=== PATIENT | male | born 1995 | race Caucasian/White ===

== ENCOUNTER 2017-10-30 07:54 | Emergency (ER) | payer OTHER, SELFPAY ==
[2017-10-30 08:00] VITALS: BP 138/86; PULSE 62; RESP 18; TEMP 36.4; O2SAT 100; BMI 30.3
--- NOTE | 2017-10-30 08:21 | ED.LOWEXIN ---
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 Denies trauma, fevers, chills, malaise. ROS with no recent constitutional symptoms. Exam Gen: Pleasant, nontoxic-appearing, resting comfortably. HEENT: NC, AT, PEERL, EOMI. Resp: Unlabored respirations with a normal work of breathing. Card: Extremities warm and well perfused. GI: Non-distended. : Deferred MSK: left knee with full functional range of motion, NON-TENSE, PREPATELLAR SWELLING WITH MINIMAL WARMTH, NO ERYTHEMA, NO OR CREPITUS, no tenderness to palpation over the patella, fibular head, or joint line. No MCL or LCL tenderness to palpation, negative Esndy and posterior drawer test. No tenderness to palpation on the quadriceps or patellar tendon, both tendons intact on knee extension. No swelling, ecchymosis or effusion. Calf without visible or palpable trauma, muscle compartments soft and non-tender to palpation. Foot warm and well perfused, sensation grossly intact to touch, 2+ DP and PT pulses. Neuro: AO x 3, no facial asymmetry, vision and hearing WNL. Heme/Lymph: Deferred Skin: Normal color with no visible lesions (other than noted above). Psych: Mood and affect appropriate. MDM Previous chart, nursing note, and vitals reviewed. 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 DDx & Evaluation: patient with left knee prepatellar bursitis, exam and history without evidence of septic bursitis, suspect inflammatory secondary to repetitive occupational trauma. No evidence of septic arthritis, CMS intact, no evidence of ligamentous, tendinous, or meniscal injury. History without indication for imaging. Patient instructed to use NSAIDs, reduce repetitive trauma, return to care precautions provided. Impression: left knee prepatellar bursitis. (please reference below for remainder of encounter information) Related Data Allergies Allergy/AdvReac Type Severity Reaction Status Date / Time No Known Allergies Allergy Uncoded 07/06/17 12:50 [facility] Social History Smoking Status: Never smoker Exam Initial Vital Signs Initial Vital Signs: Vital Signs Temperature 97.5 F L 10/30/17 08:00 Pulse Rate 62 10/30/17 08:00 Respiratory Rate 18 10/30/17 08:00 Blood Pressure 138/86 H 10/30/17 08:00 Pulse Oximetry 100 10/30/17 08:00 Course Vital Signs - 8 hr 10/30/17 08:00 Temperature 97.5 F L Pulse Rate 62 Respiratory Rate 18 Blood Pressure 138/86 H Pulse Oximetry 100
== END 2017-10-30 08:33 | disposition home or self-care (01) ==
PROVIDERS: Emergency Provider Emergency Medicine
DX: M70.42 Prepatellar bursitis, left knee (principal)
CPT/HCPCS: 99282

== ENCOUNTER 2019-05-31 08:58 | Emergency (ER) | payer OTHER, SELFPAY ==
--- NOTE | 2019-05-31 09:10 | ED_ITS ---
HPI - General Adult General Chief complaint: Extremity Problem,Nontraumatic Stated complaint: bad infection in right knee Time Seen by Provider: 05/31/19 09:00 Source: patient Mode of arrival: Ambulatory Limitations: no limitations History of Present Illness HPI narrative: 23-year-old male here for evaluation what he thinks is an infection of his right knee. He states that a couple days ago he started to get pain in the front of his right knee. Did form a ?paul ?he popped it last evening. States the swelling started this morning. Has pain with walking. Pain with bending his knee. No fevers. States he has had bursitis in the past. States that he is prone to ?staph infections ?not currently on antibiotics but has been on antibiotics in the past but not now. Related Data Previous Rx's Medication Instructions Recorded sulfamethoxazole-trimethoprim 1 tab PO BID 7 Days #14 tab 05/31/19 [Bactrim DS] Allergies Allergy/AdvReac Type Severity Reaction Status Date / Time No Known Allergies Allergy Uncoded 07/06/17 12:50 Review of Systems Constitutional Constitutional: Denies fever(s) ENT Ears, Nose, Mouth, and Throat: Denies disequilibrium Musculoskeletal Musculoskeletal: Denies numbness and Denies tingling Comments: Pain in the right knee Integumentary/Breasts Comments: Has a small paul on the front of his right knee. Swelling the right knee. No redness. Neurologic Neurologic: Denies numbness, Denies tingling and Denies disequilibrium Hematologic/Lymphatic Hematologic/Lymphatic: Denies easy bleeding and Denies easy bruising Patient History Medical History (Updated 05/31/19 @ 09:17 by Leonela Rg RN) Anxiety (Acute) MRSA (methicillin resistant Staphylococcus aureus) (Acute) Social History Smoking Status: Never smoker Smoking Status: Never smoker alcohol intake frequency: holidays/special occasions only Substance Use Type: does not use Exam Initial Vital Signs Initial Vital Signs: Vital Signs Temperature 98.1 F 05/31/19 09:13 Pulse Rate 75 05/31/19 09:13 Respiratory Rate 20 05/31/19 09:13 Blood Pressure 143/102 H 05/31/19 09:13 Pulse Oximetry 99 05/31/19 09:13 Const General: cooperative and comfortable Resp Effort & Inspection: normal respiratory effort Skin Other: No redness to the right knee however does have a 2 mm pustule the anterior aspect. No surrounding erythema. Does have swelling to the right knee. Extrem Other: Swelling to the right knee anterior. Stiffness with bending the knee secondary to the swelling Course Vital Signs Vital signs: Vital Signs - 8 hr 05/30/ 09:13 Temperature 98.1 F Pulse Rate 75 Respiratory Rate 20 Blood Pressure 143/102 H Pulse Oximetry 99 Medical Decision Making MDM Narrative Medical decision making narrative: Bedside ultrasound shows no organized fluid collection under the area. Does have swelling around the knee but appears to be in the prepatellar area. I do not feel that his issue today is a septic joint. There is no surrounding erythema. Will place the patient on antibiotics. He was given return precautions and follow-up instructions. He expressed understanding and agreement. Discharge Plan Departure Patient Disposition: Home Clinical Impression: Bursitis Qualifiers: Bursitis location: knee Knee bursitis location: prepatellar bursitis Laterality: right Qualified Code(s): M70.41 - Prepatellar bursitis, right knee Acute knee pain Qualifiers: Laterality: right Qualified Code(s): M25.561 - Pain in right knee Instructions: Bursitis Activity Restrictions/Additional Instructions: Take the antibiotics as directed. Contact your primary provider for a follow- up. Return to the emergency department for any new or worsening symptoms. You can take Tylenol and/or ibuprofen for any discomfort. Keep your knee elevated. You have no restrictions on your activities. Prescriptions: New sulfamethoxazole-trimethoprim [Bactrim DS] 800-160 mg tablet 1 tab PO BID 7 Days Qty: 14 RF: 0
[2019-05-31 09:13] VITALS: BP 143/102; PULSE 75; RESP 20; TEMP 36.7; O2SAT 99; BMI 27.9
== END 2019-05-31 09:35 | disposition home or self-care (01) ==
LOC: ED 09:31
PROVIDERS: Emergency Provider Emergency Medicine
DX: M70.41 Prepatellar bursitis, right knee (principal); M25.561 Pain in right knee
CPT/HCPCS: 99281

== ENCOUNTER 2019-06-08 13:54 | Emergency (ER) | payer OTHER, SELFPAY ==
[2019-06-08 14:02] VITALS: BP 114/77; PULSE 71; RESP 20; TEMP 36.4; O2SAT 99
--- NOTE | 2019-06-08 14:11 | DI.RAD.S_ITS ---
PROCEDURE: XR KNEE RT 3V INDICATIONS: prolonged cellulitis right knee, failed outpatient treatment TECHNIQUE: 3 views of the knee were acquired. COMPARISON: None. FINDINGS: Bones: No fractures or dislocations. No suspicious bony lesions. Anterior soft tissue swelling in the superficial infrapatellar region. Soft tissues: No joint effusion. No suspicious soft tissue calcifications. IMPRESSION: Anterior superficial soft tissue swelling, possibly related to bursitis. If the patient's pain or other symptoms persist, consider further evaluation with MRI Dictated by: Dimitry Mosher M.D. on 06/08/2019 at 15:20 Approved by: Dimitry Mosher M.D. on 06/08/2019 at 15:21
[2019-06-08] MEDS: SODIUM CHLORIDE 0.9% 1,000 ML 1000 ML IV (14:47)
[2019-06-08 15:09] LABS: Add Manual Diff / Slide Review NO; Basophils Absolute Auto 100 /uL (0-100); Basophils Percent Auto 0.7 % (0-2); Eosinophils Absolute Auto 100 /uL (0-450); Eosinophils Percent Auto 1.4 % (2-4); Hematocrit 44.6 % (41-53); Hemoglobin 15.4 g/dL (13.5-17.5); Lymphocytes Absolute Auto 2100 /uL (1100-4500); Lymphocytes Percent Auto 20.4 % (25-40); Mean Corpuscular HGB Conc 34.5 % (30-36); Mean Corpuscular Hemoglobin 28.5 PG (26-34); Mean Corpuscular Volume 82.6 fL (80-100); Monocytes Absolute Auto 800 /uL (0-900); Monocytes Percent Auto 7.4 % (3-14); Neutrophils Absolute Auto 7200 /uL (1500-7000); Neutrophils Percent Auto 70.1 % (50-75); Platelet Count 451 X10^3/uL (150-400); White Blood Cell Count 10.2 X10^3/uL (4.5-11.0)
[2019-06-08 15:17] LABS: INR 1.1 (0.9-1.3); Prothrombin Time 12.9 SECONDS (10.1-12.7)
[2019-06-08 15:19] LABS: PTT Partial Thromboplastin Tim 35 SECONDS (26.4-36.2)
[2019-06-08 15:22] LABS: Lactate (Lactic Acid) 1.7 mmol/L (0.7-2.1)
[2019-06-08 15:23] LABS: Alanine Aminotransferase 18 IU/L (<50); Albumin 4.6 g/dL (3.5-5.0); Albumin Globulin Ratio 1.4 (1.0-2.8); Alkaline Phosphatase 80 U/L (38-126); Aspartate Aminotransferase 19 IU/L (17-59); BUN Creatinine Ratio 14.7 (6-22); Bilirubin Total 0.4 mg/dL (0.2-1.3); Blood Urea Nitrogen 14 mg/dL (9-20); C-Reactive Protein Quant 4.1 mg/dL (<1.0); Calcium 9.8 mg/dL (8.4-10.2); Carbon Dioxide 27 mmol/L (22-32); Chloride 101 mmol/L (98-107); Estimated Glomerular Filt Rate > 60.0 mL/min (>60); Globulin 3.4 g/dL (1.7-4.1); Glucose 91 mg/dL (70-100); HEMOLYSIS < 15 (0-50); Lipase 52 U/L (23-300); Potassium 4.1 mmol/L (3.4-5.1); Sodium 139 mmol/L (137-145)
[2019-06-08 15:28] LABS: Erythrocyte Sedimentation Rate 21 MM/HR (0-15)
[2019-06-08 15:36] LABS: Procalcitonin < 0.05 ng/mL (<0.5)
--- NOTE | 2019-06-08 15:39 | ED.SKABFB ---
HPI - Skin/Abscess/Foreign Bdy <GLYNN Le - Last Filed: 06/08/19 23:20> General Chief complaint: Skin/Abscess/Foreign Body Stated complaint: states staph infection of right knee Time Seen by Provider: 06/08/19 14:43 Source: patient and family Mode of arrival: Ambulatory Limitations: no limitations History of Present Illness HPI narrative: This is a 23-year-old male, nonsmoker, who presents to ED with significant other with chief complain of right knee pain, warmth, redness. Patient was diagnosed with bursitis in right knee on 05/31/[address] [facility] Emergency room and discharged to home with Bactrim for b.i.d. 7 day course. Of MRSA infection on chin and knee from a spider bite in the past. Patient followed up at walk-in clinic on the 06/05/19 since the redness, swelling, tenderness on right knee becoming worse but with improved bursitis and size of his right knee. He was discharged to home with additional 7 day course of Bactrim, Keflex 500 mg q.i.d. dose for 7 days and mupirocin ointment since he started noticing drainage from infrapatella. Walk-in clinic today again with not improving staph infection of the right knee. Patient has been using warm packs on affected site. Increasing discomfort with weight-bearing and ambulation. Patient reported right knee continue to have swelling and redness with increasing discomfort and changing discoloration of light yellow above ankle. Patient denies fever, chills, nausea, vomiting, diarrhea, breathing difficulty, chest pain but continued to have difficulty bending the affected knee. Patient reports intact sensation distally. Patient was referred to emergency room with concerns for joint infection or infected bursitis. Related Data Home Medications Medication Instructions Recorded Confirmed Thc Oil 1 inh INHALATION PRN PRN 05/31/19 06/08/19 Previous Rx's Medication Instructions Recorded mupirocin 2 % topical ointment 1 applic TOP TID #30 gram 06/05/19 clindamycin HCl 150 mg PO TID 10 Days #30 cap 06/08/19 clindamycin HCl 300 mg PO TID #30 cap 06/08/19 Allergies Allergy/AdvReac Type Severity Reaction Status Date / Time No Known Drug Allergies Allergy Verified 06/08/19 14:07 Review of Systems <GLYNN Le - Last Filed: 06/08/19 23:20> Review of Systems Narrative: General: Denies fever, chills, fatigue, malaise, sweats. HEENT: Denies sinus pain, ear pain, sore throat, difficulty swallowing, dizziness. Respiratory: Denies dyspnea, cough, wheezing, hemoptysis, sputum. Cardiovascular: Denies chest pain, palpitations, orthopnea, edema. Gastrointestinal: Denies nausea, vomiting, abdominal pain, diarrhea, constipation, melena. : Denies dysuria, frequency, incontinence, hematuria, urinary retention. Musculoskeletal: See HPI Skin: See HPI Neurologic: Denies weakness, headache, numbness, change in speech, confusion, seizures, incoordination. Psychiatric: No concerning psychosocial issues. 12-point review of systems is negative except for those stated above. Patient History <GLYNN Le - Last Filed: 06/08/19 23:20> Medical History Anxiety (Acute) Cellulitis of right lower extremity (Acute) MRSA (methicillin resistant Staphylococcus aureus) (Acute) Social History Smoking Status: Never smoker Smoking Status: Never smoker alcohol intake frequency: holidays/special occasions only Substance Use Type: marijuana Exam <GLYNN Le - Last Filed: 06/08/19 23:20> Narrative Exam Narrative: General appearance: well developed, well nourished, in no acute distress. Head: normocephalic, atraumatic, no scalp lesions, non-tender. Neck/Thyroid: neck supple, full range of motion, no visible masses or meningeal signs. No JVD, non-tender without lymphadenopathy. Skin: no suspicious rashes, lesions over visible areas. Warm and dry and appropriate color for ethnicity. Heart: no clubbing, no cyanosis, no edema. S1 and S2 normal. RRR w/o murmurs, clicks, or bruits. Lungs: Breathing even and unlabored. No stridor. No accessory muscles used. Able to speak in full sentences. Chest: normal shape and expansion. Abdomen: non-obese, non-distended. Neurologic: alert and oriented. Cognitive exam, POLE SETTER and PNS grossly intact on informal exam. Psych: good eye contact, normal affect. Initial Vital Signs Initial Vital Signs: Vital Signs Temperature 97.6 F 06/08/19 14:02 Pulse Rate 71 06/08/19 14:02 Respiratory Rate 20 06/08/19 14:02 Blood Pressure 114/77 06/08/19 14:02 Pulse Oximetry 99 06/08/19 14:02 Extrem Right lower extremity: knee Details: abnormal to inspection, tenderness, swelling Location: of the proximal fibula, of the pre-patellar area, of the infrapatellar area and of the proximal tibia, abnormal ROM (Was able to flex right next slowly up to 90 degree.) Details: pain with active ROM during and pain with passive ROM during, knee ligament exam normal, ecchymosis (diffused Light yellow discoloration above right ankle), warmth (Supra and infra patella) and other (small dried scab in infra patella with small amount of fluctuation and tender to palpate), lower leg, ankle Details: normal to inspection; no tenderness and no swelling and foot Details: normal to inspection, toes with normal ROM, no edema, vascular exam Details: dorsalis pedis pulse present and motor-sensory exam Details: light-touch normal; no tenderness <Mikel Ferrell MD - Last Filed: 06/15/19 17:58> Initial Vital Signs Initial Vital Signs: Vital Signs Temperature 97.6 F 06/08/19 14:02 Pulse Rate 71 06/08/19 14:02 Respiratory Rate 20 06/08/19 14:02 Blood Pressure 114/77 06/08/19 14:02 Pulse Oximetry 99 06/08/19 14:02 Scores <GLYNN Le - Last Filed: 06/08/19 23:20> GCS [place] coma scale eye opening: Spontaneous [place] coma scale verbal response: Orientated [place] coma scale motor response: Obey commands [place] coma scale total score: 15 Course <GLYNN Le - Last Filed: 06/08/19 23:20> Orders Ordered: Discontinued Medications Sodium Chloride (Normal Saline 0.9%) 1,000 mls @ 1,000 mls/hr IV BOLUS ONE Stop: 06/08/19 15:10 Last Infusion: 06/08/19 16:14 Dose: 0 mls/hr Documented by: Admin: 06/08/19 14:47 Dose: 1,000 mls/hr Documented by: ARTHUR Clindamycin Phosphate (Cleocin) 600 mg in 50 mls @ 50 mls/hr IV NOW ONE Stop: 06/08/19 16:43 Last Infusion: 06/08/19 17:31 Dose: 0 mls/hr Documented by: Admin: 06/08/19 16:23 Dose: 50 mls/hr Documented by: ARTHUR Vital Signs Vital signs: Vital Signs - 8 hr 06/08/19 16:48 06/08/19 17:47 Temperature 98.5 F 98 F Pulse Rate 65 65 Respiratory Rate 14 14 Blood Pressure [Left Arm] 134/83 132/88 Pulse Oximetry 98 99 <Mikel Ferrell MD - Last Filed: 06/15/19 17:58> Orders Ordered: Discontinued Medications Sodium Chloride (Normal Saline 0.9%) 1,000 mls @ 1,000 mls/hr IV BOLUS ONE Stop: 06/08/19 15:10 Last Infusion: 06/08/19 16:14 Dose: 0 mls/hr Documented by: Admin: 06/08/19 14:47 Dose: 1,000 mls/hr Documented by: ARTHUR Clindamycin Phosphate (Cleocin) 600 mg in 50 mls @ 50 mls/hr IV NOW ONE Stop: 06/08/19 16:43 Last Infusion: 06/08/19 17:31 Dose: 0 mls/hr Documented by: Admin: 06/08/19 16:23 Dose: 50 mls/hr Documented by: ARTHUR Vital Signs Vital signs: Vital Signs - 8 hr 06/08/19 16:48 06/08/19 17:47 Temperature 98.5 F 98 F Pulse Rate 65 65 Respiratory Rate 14 14 Blood Pressure [Left Arm] 134/83 132/88 Pulse Oximetry 98 99 MDM - Skin/Abscess/Foreign Bdy <GLYNN Le - Last Filed: 06/08/19 23:20> Differential Diagnosis Differential diagnosis: Likely abscess of skin or subcutaneous tissue, cellulitis and other (Joint infection/infected bursa) Medical Records Attestation: I reviewed the patient's medical records. Lab Data Attestation: I reviewed the patient's lab results. Result diagrams: 06/08/19 14:57 06/08/19 14:57 Labs: Lab Results 06/08/19 06/08/19 06/08/19 Range/Units 14:57 14:57 14:57 WBC 10.2 (4.5-11.0) X10^3/uL RBC 5.40 (4.5-5.9) X10^6/uL Hgb 15.4 (13.5-17.5) g/dL Hct 44.6 (41-53) % MCV 82.6 (80-100) fL MCH 28.5 (26-34) PG MCHC 34.5 (30-36) % RDW 13.0 (11.6-14.8) % Plt Count 451 H (150-400) X10^3/uL Neut % (Auto) 70.1 (50-75) % Lymph % (Auto) 20.4 L (25-40) % [place] % (Auto) 7.4 (3-14) % Eos % (Auto) 1.4 L (2-4) % Baso % (Auto) 0.7 (0-2) % Neut # (Auto) 7200 H (4399-9653) /uL Lymph # (Auto) 2100 (9003-3707) /uL [place] # (Auto) 800 (0-900) /uL Eos # (Auto) 100 (0-450) /uL Baso # (Auto) 100 (0-100) /uL ESR 21 H (0-15) MM/HR PT 12.9 H (10.1-12.7) SECONDS INR 1.1 (0.9-1.3) APTT 35 (26.4-36.2) SECONDS Sodium (137-145) mmol/L Potassium (3.4-5.1) mmol/L Chloride (98-107) mmol/L Carbon Dioxide (22-32) mmol/L BUN (9-20) mg/dL Creatinine (0.66-1.25) mg/dL Estimated GFR (>60) mL/min BUN/Creatinine Ratio (6-22) Glucose (70-100) mg/dL Lactate (0.7-2.1) mmol/L Calcium (8.4-10.2) mg/dL Total Bilirubin (0.2-1.3) mg/dL AST (17-59) IU/L ALT (<50) IU/L Alkaline Phosphatase (38-126) U/L C-Reactive Protein (<1.0) mg/dL Total Protein (6.3-8.2) g/dL Albumin (3.5-5.0) g/dL Globulin (1.7-4.1) g/dL Albumin/Globulin Ratio (1.0-2.8) Lipase (23-300) U/L Procalcitonin < 0.05 (<0.5) ng/mL 06/08/19 06/08/19 Range/Units 14:57 14:57 WBC (4.5-11.0) X10^3/uL RBC (4.5-5.9) X10^6/uL Hgb (13.5-17.5) g/dL Hct (41-53) % MCV (80-100) fL MCH (26-34) PG MCHC (30-36) % RDW (11.6-14.8) % Plt Count (150-400) X10^3/uL Neut % (Auto) (50-75) % Lymph % (Auto) (25-40) % [place] % (Auto) (3-14) % Eos % (Auto) (2-4) % Baso % (Auto) (0-2) % Neut # (Auto) (5360-6901) /uL Lymph # (Auto) (4533-3851) /uL [place] # (Auto) (0-900) /uL Eos # (Auto) (0-450) /uL Baso # (Auto) (0-100) /uL ESR (0-15) MM/HR PT (10.1-12.7) SECONDS INR (0.9-1.3) APTT (26.4-36.2) SECONDS Sodium 139 (137-145) mmol/L Potassium 4.1 (3.4-5.1) mmol/L Chloride 101 (98-107) mmol/L Carbon Dioxide 27 (22-32) mmol/L BUN 14 (9-20) mg/dL Creatinine 0.95 (0.66-1.25) mg/dL Estimated GFR > 60.0 (>60) mL/min BUN/Creatinine Ratio 14.7 (6-22) Glucose 91 (70-100) mg/dL Lactate 1.7 (0.7-2.1) mmol/L Calcium 9.8 (8.4-10.2) mg/dL Total Bilirubin 0.4 (0.2-1.3) mg/dL AST 19 (17-59) IU/L ALT 18 (<50) IU/L Alkaline Phosphatase 80 (38-126) U/L C-Reactive Protein 4.1 H (<1.0) mg/dL Total Protein 8.0 (6.3-8.2) g/dL Albumin 4.6 (3.5-5.0) g/dL Globulin 3.4 (1.7-4.1) g/dL Albumin/Globulin Ratio 1.4 (1.0-2.8) Lipase 52 (23-300) U/L Procalcitonin (<0.5) ng/mL Urine Dip Bedside Urine Glucose Negative Bedside Urine Bilirubin - Negative Bedside Urine Ketone - Negative Urine Specific [place] 1.030 Bedside Urine Occult Blood - Negative Bedside Urine pH 5.5 Bedside Urine Protein +/- 15 Bedside Urine Urobilinogen - Negative Bedside Urine Nitrite - Negative Bedside Urine Leukocytes - Negative Esterase Imaging Data XR- Knee RT: Radiologist's Impression: [address] [address] XRay Report Signed Patient: Sawyer Bhat CMR#: [id number] : 1995Acct:[id number] Age/Sex: 23 / MDate of Service: 06/08/19 Loc: ED Accession Number: [id number] Procedure: XR knee RT 3V Ordering Provider: Mikel Ferrell MD PROCEDURE: XR KNEE RT 3V INDICATIONS: prolonged cellulitis right knee, failed outpatient treatment TECHNIQUE: 3 views of the knee were acquired. COMPARISON: None. FINDINGS: Bones: No fractures or dislocations. No suspicious bony lesions. Anterior soft tissue swelling in the superficial infrapatellar region. Soft tissues: No joint effusion. No suspicious soft tissue calcifications. IMPRESSION: Anterior superficial soft tissue swelling, possibly related to bursitis. If the patient's pain or other symptoms persist, consider further evaluation with MRI Dictated by: Dimirty Mosher M.D. on 06/08/2019 at 15:20 Approved by: Dimitry Mosher M.D. on 06/08/2019 at 15:21 [facility] Narrative Medical decision making narrative: This is a 23-year-old male who initially was seen in ED on 05/31/19 initially and diagnosed with right knee bursa and discharged to home with Bactrim. He was again re-evaluated in walk-in clinic 5 days later and discharged to home with in addition antibiotic medication with Keflex and mupirocin antibiotic ointment to treat staph infection on the infra patella. Patient return to walk-in clinic today for an re-evaluation with not improving his symptoms and was referred to ED for an evaluation for septic joint/infected bursa. Patient is afebrile with stable vital signs, denies constitutional symptoms. There is no leukocytosis with unremarkable chemistry test result. Given patient is currently being treated for staph cellulitis on right knee, there is slightly elevated ESR of 21 and CRP of 4.1. Lactate and procalcitonin were normal. Right knee x-ray test does not show fractures or dislocation. There is no bony lesions. It showed anterior soft tissue swelling and superficial infrapatellar region without joint effusion and possibly this is related to bursitis. Patient was given IV clindamycin in ED and discharged to home with remaining prescription for clindamycin 450 mg t.i.d. dose for 2 weeks. Patient advised to follow-up with orthopedist and work off note was provided. Patient advised to use Earnest wrap to prevent bending of his knee excessively but advised to gently stretch several times a day unaffected knee to prevent frozen knee. Patient discharged to home with crutches for discomfort with weight-bearing. Informed to use [id number] Tylenol and or Motrin as needed for discomfort and warm pack for cellulitis. Return precautions were discussed with the patient and patient verbalized understanding and agreement with treatment plan. <Mikel Ferrell MD - Last Filed: 06/15/19 17:58> Lab Data Labs: Lab Results 06/08/19 06/08/19 06/08/19 Range/Units 14:57 14:57 14:57 WBC 10.2 (4.5-11.0) X10^3/uL RBC 5.40 (4.5-5.9) X10^6/uL Hgb 15.4 (13.5-17.5) g/dL Hct 44.6 (41-53) % MCV 82.6 (80-100) fL MCH 28.5 (26-34) PG MCHC 34.5 (30-36) % RDW 13.0 (11.6-14.8) % Plt Count 451 H (150-400) X10^3/uL Neut % (Auto) 70.1 (50-75) % Lymph % (Auto) 20.4 L (25-40) % [place] % (Auto) 7.4 (3-14) % Eos % (Auto) 1.4 L (2-4) % Baso % (Auto) 0.7 (0-2) % Neut # (Auto) 7200 H (4169-6410) /uL Lymph # (Auto) 2100 (7682-0615) /uL [place] # (Auto) 800 (0-900) /uL Eos # (Auto) 100 (0-450) /uL Baso # (Auto) 100 (0-100) /uL ESR 21 H (0-15) MM/HR PT 12.9 H (10.1-12.7) SECONDS INR 1.1 (0.9-1.3) APTT 35 (26.4-36.2) SECONDS Sodium (137-145) mmol/L Potassium (3.4-5.1) mmol/L Chloride (98-107) mmol/L Carbon Dioxide (22-32) mmol/L BUN (9-20) mg/dL Creatinine (0.66-1.25) mg/dL Estimated GFR (>60) mL/min BUN/Creatinine Ratio (6-22) Glucose (70-100) mg/dL Lactate (0.7-2.1) mmol/L Calcium (8.4-10.2) mg/dL Total Bilirubin (0.2-1.3) mg/dL AST (17-59) IU/L ALT (<50) IU/L Alkaline Phosphatase (38-126) U/L C-Reactive Protein (<1.0) mg/dL Total Protein (6.3-8.2) g/dL Albumin (3.5-5.0) g/dL Globulin (1.7-4.1) g/dL Albumin/Globulin Ratio (1.0-2.8) Lipase (23-300) U/L Procalcitonin < 0.05 (<0.5) ng/mL 06/08/19 06/08/19 Range/Units 14:57 14:57 WBC (4.5-11.0) X10^3/uL RBC (4.5-5.9) X10^6/uL Hgb (13.5-17.5) g/dL Hct (41-53) % MCV (80-100) fL MCH (26-34) PG MCHC (30-36) % RDW (11.6-14.8) % Plt Count (150-400) X10^3/uL Neut % (Auto) (50-75) % Lymph % (Auto) (25-40) % [place] % (Auto) (3-14) % Eos % (Auto) (2-4) % Baso % (Auto) (0-2) % Neut # (Auto) (7920-5340) /uL Lymph # (Auto) (2014-4304) /uL [place] # (Auto) (0-900) /uL Eos # (Auto) (0-450) /uL Baso # (Auto) (0-100) /uL ESR (0-15) MM/HR PT (10.1-12.7) SECONDS INR (0.9-1.3) APTT (26.4-36.2) SECONDS Sodium 139 (137-145) mmol/L Potassium 4.1 (3.4-5.1) mmol/L Chloride 101 (98-107) mmol/L Carbon Dioxide 27 (22-32) mmol/L BUN 14 (9-20) mg/dL Creatinine 0.95 (0.66-1.25) mg/dL Estimated GFR > 60.0 (>60) mL/min BUN/Creatinine Ratio 14.7 (6-22) Glucose 91 (70-100) mg/dL Lactate 1.7 (0.7-2.1) mmol/L Calcium 9.8 (8.4-10.2) mg/dL Total Bilirubin 0.4 (0.2-1.3) mg/dL AST 19 (17-59) IU/L ALT 18 (<50) IU/L Alkaline Phosphatase 80 (38-126) U/L C-Reactive Protein 4.1 H (<1.0) mg/dL Total Protein 8.0 (6.3-8.2) g/dL Albumin 4.6 (3.5-5.0) g/dL Globulin 3.4 (1.7-4.1) g/dL Albumin/Globulin Ratio 1.4 (1.0-2.8) Lipase 52 (23-300) U/L Procalcitonin (<0.5) ng/mL Urine Dip Bedside Urine Glucose Negative Bedside Urine Bilirubin - Negative Bedside Urine Ketone - Negative Urine Specific [place] 1.030 Bedside Urine Occult Blood - Negative Bedside Urine pH 5.5 Bedside Urine Protein +/- 15 Bedside Urine Urobilinogen - Negative Bedside Urine Nitrite - Negative Bedside Urine Leukocytes - Negative Esterase Discharge Plan Departure Patient Disposition: Home Clinical Impression: Cellulitis of right lower extremity Discharge Date/Time: 06/08/19 17:55 Instructions: DI for Cellulitis -- Adult Activity Restrictions/Additional Instructions: You have been diagnosed with [cellulitis and bursitis on right lower extremity. There is no elevation in white blood cell counts. Indication for early infection of ESR and CRP is mildly elevated, given you have cellulitis and it is expected. X-ray test on right knee does not show fracture, dislocation, or joint effusion but anterior soft tissue swelling in the superficial infrapatellar region. Or Please use crutches as provided and use it as needed for pain on right leg with weight-bearing. You can use Earnest wrap during ambulation but removed this several times a day and do gentle stretching exercises. Please use warm pack on cellulitis to help with healing.]. What to do: *Take your medications as directed. Start taking clindamycin tomorrow morning 3 times a day for next 10 days since you have received IV medication in ED. this medication has been transmitted to [facility] in [place]. He can stop taking other 2 antibiotic medication by orally. Continue to use ointment on affected site. *Follow up with your primary care provider/orthopedist in 2-3 days, call for an appointment. Let them know you were seen in the ED and that we asked you to be seen in follow up. *Return to ED if you have any new, worsening, or concerning symptoms, such as [increasing pain, redness, warmth, swelling, weakness/decreased sensation, chest pain, breathing difficulty, or any acute concerns. It would be good idea to incorporate probiotics since you have been on antibiotic medication for prolonged time.]. Prescriptions: New clindamycin HCl 300 mg capsule 300 mg PO TID Qty: 30 RF: 0 clindamycin HCl 150 mg capsule 150 mg PO TID 10 Days Qty: 30 RF: 0 No Action mupirocin 2 % ointment 1 applic TOP TID Qty: 30 RF: 1 Thc Oil 1 inh inhalation PRN PRN (Reason: Anxiety) RF: 0 Referrals: [facility] [Provider Group] [facility] [Outside] Stand Alone Forms: Work Release Note
[2019-06-08] MEDS: CLINDAMYCIN 600 MG/50 ML PIGGYBACK 50 MG IV (16:23)
[2019-06-08 16:48] VITALS: BP 134/83; PULSE 65; RESP 14; TEMP 36.9; O2SAT 98
[2019-06-08 17:47] VITALS: BP 132/88; PULSE 65; RESP 14; TEMP 36.6; O2SAT 99
== END 2019-06-08 17:55 | disposition home or self-care (01) ==
PROVIDERS: Emergency Medicine; Emergency Provider Nurse Practitioner Family
DX: L03.115 Cellulitis of right lower limb (principal)
CPT/HCPCS: 36415; 73562; 80053; 81003; 83605; 83690; 84145; 85025; 85610; 85651; 85730; 86140; 87040; 96361; 96365; 99284